=== PATIENT | female | born 1955 | race Caucasian/White ===

== ENCOUNTER → 2016-08-20 | Day surgery (SDC) | payer OTHER ==
[~2016-08-20] MED LIST: LIPITOR PO; LOSARTAN-HCTZ1 EAC2 PO; OMEPRAZOLE40 M1; OMEPRAZOLE40 M1 PO
--- NOTE | ~2016-08-20 | OR ---
Unit #: [id number] #: [id number] Patient: TJ MILIAN [id number] [address] [address] [id number] O MR#: [id number] NAME: TJ MILIAN. ROOM: Date of Procedure: 08/20/2016 Admission Date: 08/20/2016 Surgeon: Aquiles Aj M.D. : 1955 Attending Physician: Aquiles Aj M.D. Referring Physician: Aquiles Aj M.D. Primary Care Physician: Nikkie Valle Aprn OPERATIVE REPORT JOB NOTE: CC: NIKKIE VALLE APRN. PREOPERATIVE DIAGNOSES Gastroesophageal reflux and retrosternal ascending heartburn as well as colorectal cancer screening. PROCEDURES PERFORMED Upper gastrointestinal endoscopy and biopsy as well as colonoscopy up to cecum and terminal ileum. POSTOPERATIVE DIAGNOSES For upper endoscopy: 1. The patient grade 1 distal erosive esophagitis as well as a small hiatus hernia. In addition, there was mild antral erythema indicating mild antral gastritis. A biopsy obtained from the antrum for CLOtest. Rest of the examination up to third part of duodenum was normal. For colonoscopy: 1. Completely normal examination up to cecum and terminal ileum. The quality of prep was excellent. No polyps, diverticula, or hemorrhoids were seen. RECOMMENDATIONS 1. Pantoprazole 40 mg p.o. daily. 2. The patient need a repeat colonoscopy in 10 years. SEDATION USED MAC. DESCRIPTION OF PROCEDURE Following detailed explanation of the potential risks and complications of an upper endoscopy and a colonoscopy, namely perforation, bleeding, and complication related to sedation, the patient was brought to GI lab and laid in the left lateral decubitus position. Lubricated tip of the Olympus video upper endoscope was passed through the bite block into the proximal esophagus under direct vision. The entire esophageal mucosa was examined. The patient was noted to have grade 1 distal erosive esophagitis along with a small hiatus hernia. The scope was then advanced into the gastric cavity and the latter was insufflated. Mucosa of the fundus, body, and antrum was examined. Mild prepyloric antral erythema was noted indicating antral gastritis. Pylorus was intubated with visualization of normal duodenal bulb and second and third part of the duodenum. Upon withdrawal and retroflexion, incisura, cardia, and greater Unit #: [id number] #: [id number] Patient: TJ MILIAN curve examined and biopsy obtained from the antrum for CLOtest. The scope was then withdrawn in the distal esophagus. The entire esophageal mucosa was examined all the way up to pharynx. No additional findings were noted. The examination table was then turned by 180 degrees and the patient positioned for a colonoscopy. A digital rectal examination was performed, which was normal. Lubricated tip of the Olympus video colonoscope was inserted through the anus and advanced under direct vision. The scope was advanced and passed up to sigmoid into descending colon. No diverticula were seen in this area. The scope tip was then navigated all the way up to cecum with visualization of the ileocecal valve and the appendiceal orifice. Preparation was excellent with good visualization and photodocumentation was obtained. Last several inches of terminal ileum also visualized after intubation of the ileocecal valve and appeared normal. Successive segments of the colonic mucosa were examined upon withdrawal and appeared unremarkable. There being no polyps, mass lesions, AVMs, or diverticula. The patient did not have any hemorrhoids at the anal verge. The scope was withdrawn. The patient returned to the recovery area. She tolerated the procedure without any postprocedure complications. Dictated by... Josh Helms/chetna TD: 08/20/2016 23:30 JOB #: [id number] OPERATIVE REPORT Page 1 of 1 X Aquiles Aj MD X PROCEDURE OPERATIVE NOTE
== END | disposition home or self-care (01) ==
LOC: COPS 11:19
DX: Z12.11 Encounter for screening for malignant neoplasm of colon (principal); K21.0 Gastro-esophageal reflux disease with esophagitis; K44.9 Diaphragmatic hernia without obstruction or gangrene; K29.50 Unspecified chronic gastritis without bleeding; I10 Essential (primary) hypertension; E78.5 Hyperlipidemia, unspecified; G47.30 Sleep apnea, unspecified; Z87.442 Personal history of urinary calculi; Z79.899 Other long term (current) drug therapy; Z98.890 Other specified postprocedural states
CPT/HCPCS: 87077; J2250